=== PATIENT | male | born 1965 | race Caucasian/White ===

== ENCOUNTER 2025-08-31 00:22 | Emergency (ER) | payer OTHER ==
[~2025-08-31] VITALS: Ht 167.6 cm; Wt 82.0 kg
[2025-08-31 00:23] VITALS: O2SAT 100
[2025-08-31 00:38] VITALS: TEMP 36.8; O2SAT 99
[2025-08-31 01:49] VITALS: BP 103/82; PULSE 98; RESP 18
[2025-08-31] MEDS: IBUPROFEN 600MG TABLET PO ONE (01:49)
[2025-08-31] MEDS ORDERED: IBUP-1455 MT (02:26)
== END 2025-08-31 03:28 | disposition home or self-care (01) ==
LOC: ER 00:22
DX: S90.31XA Contusion of right foot, initial encounter (principal); X50.1XXA Overexertion from prolonged static or awkward postures, initial encounter; Y93.89 Activity, other specified; Y92.89 Other specified places as the place of occurrence of the external cause; Y99.8 Other external cause status
CPT/HCPCS: 73610; 73630; 29515; 99284; A6449; Z7610